=== PATIENT | female | born 1985 | race Caucasian/White ===

== ENCOUNTER 2024-07-31 10:04 | Outpatient (CLI) | payer OTHER | END 2024-07-31 10:05 | disposition home or self-care (01) | LOC: SCSMRI 10:04 | PROVIDERS: ATTEND Physical Medicine & Rehabilitation | DX: G93.31 Postviral fatigue syndrome (principal); I95.1 Orthostatic hypotension; H53.19 Other subjective visual disturbances; J32.0 Chronic maxillary sinusitis; J33.1 Polypoid sinus degeneration | CPT/HCPCS: 70553; 76376 ==